=== PATIENT | female | born 1975 | race Caucasian/White ===

== ENCOUNTER → 2020-09-05 | Outpatient (CLI) | payer OTHER ==
[~2020-09-05] MED LIST: ALLERGY10 M2 PO; AMLODIPINE BESY10 MG; AMLODIPINE BESY10 MG PO; CYMBALTA60 MG PO; FUROSEMIDE 40 M40 M1 PO; GLUCOPHAGE850 MG PO; HUMALOG100 UNIT/1 SUBQ; HYDRALAZINE 2525 M1 PO; HYDROCODON-ACE1 EAC7 PO; LANTUS100 UNIT/M SUBQ; LEVAQUIN 500 M500 M6 PO; LOPRESSOR25 PO; NAPROSYN500 MG PO; NEURONTIN 300300 M1 PO; NEURONTIN 400M400 M2 PO; NORCO 10-325 T1 EACH PO; NORVASC5 MG PO; SENNA PO; SKELAXIN 800 M800 MG PO; SPIRONOLACTONE25 MG; SPIRONOLACTONE25 MG PO; TOPROL XL50 MG PO; TRAMADOL 50 MG50 MG PO; ZOCOR 10 MG TAB10 M1; ZOCOR 20 MG TAB20 M1 PO; ZYVOX600 MG PO
== END ==
LOC: M.LAB 15:38
PROVIDERS: ATTEND Orthopaedic Surgery
DX: Z01.812 Encounter for preprocedural laboratory examination (principal); Z20.822 Contact with and (suspected) exposure to COVID-19

== ENCOUNTER → 2020-09-26 | Outpatient (CLI) | payer OTHER | LOC: M.LAB 15:40 | PROVIDERS: ATTEND Orthopaedic Surgery | DX: Z01.812 Encounter for preprocedural laboratory examination (principal); Z20.822 Contact with and (suspected) exposure to COVID-19 ==